=== PATIENT | female | born 1970 | race Caucasian/White ===

== ENCOUNTER 2020-06-22 20:28 | Emergency (ER) | payer OTHER, SELFPAY ==
[2020-06-22 20:34] VITALS: BP 168/111; BP 190/100; PULSE 106; PULSE 118; RESP 20; TEMP 36.8; O2SAT 96; BMI 32.6
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
[2020-06-22] MEDS: Acetaminophen 325 MG TABLET 975 MG PO (21:49)
[2020-06-22] MEDS: Ketorolac Tromethamine 15 MG/ML VIAL IM (21:49)
[2020-06-22] MEDS: Lidocaine 4 % Patch ADH..PATCH 1 PATCH TRANSDERMA (21:50)
[2020-06-22 22:00] VITALS: BP 162/97; PULSE 101; RESP 20; O2SAT 96
[2020-06-23 01:06] VITALS: BP 153/87; PULSE 91; RESP 20; O2SAT 98
== END 2020-06-23 01:21 | disposition home or self-care (01) ==
PROVIDERS: Emergency Provider Student in an Organized Health Care Education/Training Program
DX: Z04.1 Encounter for examination and observation following transport accident (principal); M54.2 Cervicalgia; M25.512 Pain in left shoulder; E11.9 Type 2 diabetes mellitus without complications
CPT/HCPCS: 70450; 72125; 96372; 99284; J1885